=== PATIENT | female | born 1970 | race Caucasian/White ===

== ENCOUNTER 2017-10-29 01:10 | Emergency (ER) | payer BC ==
[2017-10-29] MEDS ORDERED: FENTANYL CITR 100 MCG/2 ML ONE (01:36)
[2017-10-29] MEDS ORDERED: ASPIRIN 81 MG CHEWABLE TABLET ONE (01:36)
[2017-10-29 02:52] LABS: Absolute Lymphocytes (CBC) 2.4 K/uL (0.7-4.9); Absolute Monocytes 0.6 K/uL (0.1-1.3); Absolute Neutrophil 2.6 K/uL (1.8-8.0); BUN Blood Urea Nitrogen 11 mg/dL (6-20); Basophils % 0.8 % (0-1.3); Bicarbonate 27 mEq/L (21-31); Eosinophils % 1.6 % (0-4.4); Glucose Level 87 mg/dL (65-120); Lymphocytes % 41.7 % (15.3-44.8); MCH 33.3 pg (27.0-35.0); MCV 99.1 fL (80-100); MPV 9.6 fL (7.6-11.3); Monocytes % 10.2 % (3.3-12.3); Potassium 3.7 mEq/L (3.6-5.0); RBC Red Blood Cell Count 4.14 M/uL (3.86-4.86); Sodium Level 138 mEq/L (135-145)
[2017-10-29 02:58] LABS: Urine RBC <5 /HPF (NONE SEEN)
[2017-10-29 03:03] LABS: Urine Bacteria 20-50 /HPF (<20); Urine Culture Reflex Order REFLEXED
--- NOTE | 2017-10-29 03:07 | ER ---
Nurse's Notes [facility] Name: Abigail Hernandez Age: 47 yrs Sex: Female : 1970 Arrival Date: 10/29/2017 Time: 01:17 Bed 18 Private MD: Diagnosis: Chest pain, unspecified;Urinary tract infection, site not specified Presentation: 10/29 01:17 Presenting complaint: Patient states: she has been having a burning pain in the L side aa1 of her neck for the past year but reports the pain has become significantly worse here recently and this evening she began having cramping in her chest. States, "There's something in this vein right here like a cigarette burning me.". Transition of care: patient was not received from another setting of care. Onset of symptoms was 2016. Care prior to arrival: None. 01:17 Method Of Arrival: Ambulatory aa1 01:17 Acuity: RACHAEL 3 aa1 Triage Assessment: 01:21 General: Appears in no apparent distress. uncomfortable, Behavior is anxious, restless. aa1 Historical: - Allergies: 01:21 No Known Allergies; aa1 - Home Meds: 01:21 Xanax 0.25 mg Oral tab 1 tab [Active]; aa1 - PMHx: 01:21 Ovarian cysts; Hernia; Anxiety; aa1 - PSHx: 01:21 Cholecystectomy; aa1 - Immunization history:: Flu vaccine is not up to date. - Social history:: Smoking status: Patient uses tobacco products, smokes one pack cigarettes per day. Screenin:01 Abuse screen: Denies threats or abuse. Nutritional screening: No deficits noted. ea Tuberculosis screening: No symptoms or risk factors identified. Fall Risk None identified. Assessment: 01:45 General: Appears uncomfortable, Behavior is cooperative, restless. Pain: Complains of ea pain in left sternocleidomastoid Pain does not radiate. Pain currently is 10 out of 10 on a pain scale. Quality of pain is described as burning, Pain began 3 hours ago. Neuro: Level of Consciousness is awake, alert, obeys commands, Oriented to person, place, time, situation. Cardiovascular: Heart tones present Patient's skin is warm and dry. Respiratory: Airway is patent Respiratory effort is even, unlabored, Respiratory pattern is regular, symmetrical, Breath sounds are clear bilaterally. GI: No signs and/or symptoms were reported involving the gastrointestinal system. : Reports burning with urination. Derm: Skin is pink, warm \\T\\ dry. 02:58 Reassessment: Patient and/or family updated on plan of care and expected duration. Pain ea level reassessed. Pt resting with eyes closed, respirations even and unlabored, chest expansions even and symmetrical. 03:11 Reassessment: Provider at bedside updating on plan of care. ea 03:27 Reassessment: Patient and/or family updated on plan of care and expected duration. Pain ea level reassessed. Patient is alert, oriented x 3, equal unlabored respirations, skin warm/dry/pink. Discharge instructions given to patient and spouse, verbalized understanding of instructions. Vital Signs: 01:21 BP 144 / 97; Pulse 99; Resp 20; Temp 98.3; Pulse Ox 98% on R/A; Weight 52.16 kg; Height aa1 5 ft. 8 in. (172.72 cm); Pain 10/10; 02:45 BP 140 / 82; Pulse 93; Resp 18; Pulse Ox 100% on R/A; ea 02:45 BP 135 / 77; Pulse 88; Resp 18 S; Temp 98; Pulse Ox 100% on R/A; ea 01:21 Body Mass Index 17.49 (52.16 kg, 172.72 cm) aa1 ED Course: 01:17 Patient arrived in ED. aa1 01:18 Ravinder Christopher MD is Attending Physician. gs 01:19 Triage completed. aa1 01:21 Arm band placed on left wrist. Patient placed in an exam room, on a stretcher. aa1 01:24 Jeff Hassan PA is PHCP. jr8 01:32 Cecy Mota RN is Primary Nurse. ea 01:45 Patient has correct armband on for positive identification. Bed in low position. Call ea light in reach. Side rails up X 1. NIBP on. 01:45 Missed attempt(s): 22 gauge in right antecubital area. Patient maintains SpO2 ea saturation greater than 95% on room air. 01:50 Inserted saline lock: 24 gauge in right hand, using aseptic technique. Blood collected. ea 03:23 No provider procedures requiring assistance completed. IV discontinued, intact, ea bleeding controlled, No redness/swelling at site. Pressure dressing applied. Administered Medications: 01:58 Drug: fentaNYL (PF) 50 mcg Route: IVP; Site: right hand; ea 03:06 Follow up: Response: No adverse reaction; Marked relief of symptoms; Pain is decreased ea 02:06 Drug: Aspirin Chewable Tablet 324 mg Route: PO; ea 03:07 Follow up: Response: No adverse reaction ea Outcome: 03:06 Discharge ordered by MD. gomes 03:24 Discharged to home ambulatory, with significant other. ea 03:24 Condition: good 03:24 Discharge instructions given to patient, family, Instructed on discharge instructions, follow up and referral plans. medication usage, Demonstrated understanding of instructions, follow-up care, medications, Prescriptions given X 3. 03:28 Patient left the ED. ea Addendum: 11/01/2017 08:19 Addendum: Culture Results: Positive urine culture. No further action required. Bacteria s s sensitive to prescribed antibiotic. Signatures: Cecelia Hooper RN RN aa1 Estrella Crandall RN RN ss Roszak, Josh, PA PA jr8 Cecy Mota RN RN ea Starr, Gregory, MD MD
--- NOTE | 2017-10-29 03:07 | EDPHYS ---
Physician Documentation [facility] Name: Abigail Hernandez Age: 47 yrs Sex: Female : 1970 Arrival Date: 10/29/2017 Time: 01:17 Bed 18 Private MD: ED Physician Ravinder Christopher HPI: 10/29 01:41 This 47 yrs old Female presents to ER via Ambulatory with complaints of Chest jr8 Pain, Neck Pain, >24Hrs Old. 01:41 Onset: acutely, today. The pain does not radiate. Associated signs and symptoms: The jr8 patient has no apparent associated signs or symptoms. The chest pain is described as squeezing. Duration: The patient or guardian reports a single episode, that is now resolved. Modifying factors: The symptoms are alleviated by nothing. the symptoms are aggravated by nothing. Severity of pain: At its worst the pain was moderate in the emergency department the pain has resolved. The patient has experienced a previous episode. The patient has not recently seen a physician. Patient stated that she has had a burning neck sensation for over a year. While sleeping started to have intense squeezing sensation in chest. Denies any other s/s . Historical: - Allergies: 01:21 No Known Allergies; aa1 - Home Meds: 01:21 Xanax 0.25 mg Oral tab 1 tab [Active]; aa1 - PMHx: 01:21 Ovarian cysts; Hernia; Anxiety; aa1 - PSHx: 01:21 Cholecystectomy; aa1 - Immunization history:: Flu vaccine is not up to date. - Social history:: Smoking status: Patient uses tobacco products, smokes one pack cigarettes per day. ROS: 01:41 Eyes: Negative for injury, pain, redness, and discharge, ENT: Negative for injury, jr8 pain, and discharge, Respiratory: Negative for shortness of breath, cough, wheezing, and pleuritic chest pain, Abdomen/GI: Negative for abdominal pain, nausea, vomiting, diarrhea, and constipation, Back: Negative for injury and pain, MS/Extremity: Negative for injury and deformity, Skin: Negative for injury, rash, and discoloration, Neuro: Negative for headache, weakness, numbness, tingling, and seizure. 01:41 Neck: Positive for pain at rest. 01:41 Cardiovascular: Positive for chest pain, Negative for edema, orthopnea, palpitations, paroxysmal nocturnal dyspnea. Exam: 01:41 Head/Face: Normocephalic, atraumatic. Eyes: Pupils equal round and reactive to light, jr8 extra-ocular motions intact. Lids and lashes normal. Conjunctiva and sclera are non-icteric and not injected. Cornea within normal limits. Periorbital areas with no swelling, redness, or edema. ENT: Nares patent. No nasal discharge, no septal abnormalities noted. Tympanic membranes are normal and external auditory canals are clear. Oropharynx with no redness, swelling, or masses, exudates, or evidence of obstruction, uvula midline. Mucous membranes moist. Neck: Trachea midline, no thyromegaly or masses palpated, and no cervical lymphadenopathy. Supple, full range of motion without nuchal rigidity, or vertebral point tenderness. No Meningismus. Chest/axilla: Normal chest wall appearance and motion. Nontender with no deformity. No lesions are appreciated. Cardiovascular: Regular rate and rhythm with a normal S1 and S2. No gallops, murmurs, or rubs. Normal PMI, no JVD. No pulse deficits. Respiratory: Lungs have equal breath sounds bilaterally, clear to auscultation and percussion. No rales, rhonchi or wheezes noted. No increased work of breathing, no retractions or nasal flaring. Abdomen/GI: Soft, non-tender, with normal bowel sounds. No distension or tympany. No guarding or rebound. No evidence of tenderness throughout. Back: No spinal tenderness. No costovertebral tenderness. Full range of motion. Skin: Warm, dry with normal turgor. Normal color with no rashes, no lesions, and no evidence of cellulitis. MS/ Extremity: Pulses equal, no cyanosis. Neurovascular intact. Full, normal range of motion. Neuro: Awake and alert, GCS 15, oriented to person, place, time, and situation. Cranial nerves II-XII grossly intact. Motor strength 5/5 in all extremities. Sensory grossly intact. Cerebellar exam normal. Normal gait. Vital Signs: 01:21 BP 144 / 97; Pulse 99; Resp 20; Temp 98.3; Pulse Ox 98% on R/A; Weight 52.16 kg; Height aa1 5 ft. 8 in. (172.72 cm); Pain 10/10; 02:45 BP 140 / 82; Pulse 93; Resp 18; Pulse Ox 100% on R/A; ea 02:45 BP 135 / 77; Pulse 88; Resp 18 S; Temp 98; Pulse Ox 100% on R/A; ea 01:21 Body Mass Index 17.49 (52.16 kg, 172.72 cm) aa1 MDM: 01:25 Patient medically screened. 8 03:04 The patient was given aspirin in the Emergency Department. Data reviewed: vital signs, [facility] nurses notes, lab test result(s), EKG, radiologic studies, plain films, and as a result, I will discharge patient. Data interpreted: Pulse oximetry: on room air is 98 %. Interpretation: normal. Counseling: I had a detailed discussion with the patient and/or guardian regarding: the historical points, exam findings, and any diagnostic results supporting the discharge/admit diagnosis, lab results, radiology results, the need for outpatient follow up, a family practitioner, to return to the emergency department if symptoms worsen or persist or if there are any questions or concerns that arise at home. Response to treatment: the patient's symptoms have resolved after treatment. Special discussion: Based on the patient's history, exam, and Dx evaluation, there is no indication for emergent intervention or inpatient Tx. It is understood by the patient/guardian that if the Sx's persist or worsen they need to return immediately for re-evaluation. 10/29 01:25 Order name: CBC with Diff; Complete Time: 02:53 [facility] 10/29 01:25 Order name: Basic Metabolic Panel; Complete Time: 02:53 [facility] 10/29 01:25 Order name: Urine Microscopic Only; Complete Time: 03:04 [facility] 10/29 01:25 Order name: Troponin (emerg Dept Use Only); Complete Time: 03:04 [facility] 10/29 02:29 Order name: Urine Dipstick--Ancillary (enter results) [facility] 10/29 02:29 Order name: Urine --Ancillary (enter results) [facility] 10/29 01:25 Order name: Urine Test (obtain specimen); Complete Time: 02:07 [facility] 10/29 01:25 Order name: EKG - Nurse/Tech; Complete Time: 01:25 [facility] 10/29 03:05 Order name: Urine Culture EDMS Administered Medications: :58 Drug: fentaNYL (PF) 50 mcg Route: IVP; Site: right hand; ea 03:06 Follow up: Response: No adverse reaction; Marked relief of symptoms; Pain is decreased ea 02:06 Drug: Aspirin Chewable Tablet 324 mg Route: PO; ea 03:07 Follow up: Response: No adverse reaction ea Disposition: 06:19 Co-signature as Attending Physician, Ravinder Christopher MD. Disposition: 10/29/17 03:06 Discharged to Home. Impression: Chest pain, unspecified, Urinary tract infection, site not specified. - Condition is Stable. - Discharge Instructions: Nonspecific Chest Pain, Urinary Tract Infection. - Prescriptions for Macrobid 100 mg Oral Capsule - take 1 capsule by ORAL route every 12 hours for 7 days; 14 capsule. Ibuprofen 800 mg Oral Tablet - take 1 tablet by ORAL route every 8 hours As needed take with food; 30 tablet. Robaxin 500 mg Oral Tablet - take 2 tablet by ORAL route every 6 hours As needed; 40 tablet. - Medication Reconciliation Form, Thank You Letter, Antibiotic Education, Prescription Opioid Use form. - Follow up: Private Physician; When: 2 - 3 days; Reason: Recheck today's complaints, Continuance of care, Re-evaluation by your physician. - Problem is new. - Symptoms have improved. Signatures: Dispatcher [employer] Cecelia Cantu RN RN aa1 Jeff Hassan PA PA jr8 Cecy Mota RN Ravinder Baldwin ea, MD MD
[2017-10-29 04:40] LABS: Urine Blood 1+ (NEG); Urine Glucose NEGATIVE (NEG); Urine Protein NEGATIVE (NEG); Urine pH 6.5 (5.0-7.0)
--- NOTE | 2017-10-29 12:11 | EKG ---
Test Date: 2017-10-29 Test Time: 01:19:29 Supervisor Stitching Department: [facility] MEASUREMENT RESULTS: Intervals: Rate: 108 TX: 134 QRSD: 76 QT: 356 QTc: 477 [place]: P: 77 TX: 134 QRS: 75 T: 57 INTERPRETIVE STATEMENTS: Sinus tachycardia Otherwise normal ECG Compared to ECG 12/20/2016 19:17:18 Sinus rhythm no longer present Electronically Signed On 10-29-17 12:10:49 CDT by Hugo Carbone
== END 2017-10-29 03:28 | disposition home or self-care (01) ==
LOC: ER 01:10
DX: N39.0 Urinary tract infection, site not specified (principal); F41.9 Anxiety disorder, unspecified; F17.210 Nicotine dependence, cigarettes, uncomplicated
CPT/HCPCS: 36415; 80048; 81003; 81015; 81025; 84484; 85025; 87077; 87086; 87088; 87186; 93005; 96374; 99284; J3010